=== PATIENT | female | born 1985 | race Asian ===

== ENCOUNTER 2017-04-23 10:50 | Inpatient (IN) | payer OTHER ==
[2017-04-23 11:50] VITALS: BMI 41.3
[2017-04-23 12:06] LABS: BASOPHIL 0.2 % (0-2.0); EOSINOPHIL 0.3 % (0-4.5); MCH 30.6 pg (25.7-33.7); MCHC 34.6 g/dl (32.0-36.0); MEAN CELL VOLUME 88.5 fl (80-96); MEAN PLT VOLUME 9.7 fl (7.5-11.1); NEUTROPHILS 84.1 % (42.8-82.8); PLATELET COUNT 231 K/MM3 (134-434); RDW 14.3 % (11.6-15.6); WHITE BLOOD COUNT 8.7 K/mm3 (4.0-10.0)
[2017-04-23 12:19] LABS: INR 0.96 (0.82-1.09); PROTHROMBIN TIME (PATIENT) 10.6 SEC (9.98-11.88)
[2017-04-23 12:21] LABS: ACTIVATED PTT 28.7 SECONDS (26.9-34.4)
[2017-04-23 12:42] LABS: ALBUMIN 2.7 g/dl (3.4-5.0); ANION GAP 10 (8-16); BILIRUBIN,TOTAL 0.4 mg/dL (0.2-1.0); CO2 23 mmol/L (21-32); CREATININE 0.4 mg/dL (0.55-1.02); GLUCOSE,RANDOM 129 mg/dL (74-106); SGOT/AST 27 U/L (15-37); SGPT/ALT 24 U/L (12-78); TOT PROT 6.7 g/dl (6.4-8.2)
[2017-04-23 12:43] LABS: ALK PHOS 113 U/L (45-117)
[2017-04-23 14:31] LABS: URINE APPEARANCE CLEAR; URINE BILIRUBIN NEGATIVE (NEGATIVE); URINE BLOOD 1+ (NEGATIVE); URINE COLOR LTYELLOW; URINE GLUCOSE (UA) NEGATIVE (NEGATIVE); URINE KETONE NEGATIVE (NEGATIVE); URINE LEUK ESTERASE 3+ (NEGATIVE); URINE NITRITE NEGATIVE (NEGATIVE); URINE PROTEIN 1+ (NEGATIVE); URINE UROBILINOGEN NEGATIVE E.U./dl (0.2-1.0)
[2017-04-23 14:36] LABS: URINE RBC 5 /hpf (0-3); URINE WBC 7 /hpf (3-5)
[2017-04-23] MEDS ORDERED: CITRIC ACID/SODIUM CITRATE 30 ML UNIT-DOSE CUP PO ONE (15:30)
[2017-04-23] MEDS ORDERED: ELECTROLYTE-148 SOLN 500 ML IV ONE ×2 (15:30→16:30)
[2017-04-23 19:32] LABS: URIC ACID 3.1 mg/dL (2.6-7.2)
--- NOTE | 2017-04-23 19:53 | HP ---
Past Medical History - Admission Chief Complaint: Absent movement History of Present Illness: 32 yo @ 39 weeks gestation, sent from diagnostic center to L&D with a diagnosis of Demise. Patient states that she has not felt movement since yesterday. She's a gestational Diabetic. She had one prior . History Source: Patient Limitations to Obtaining History: No Limitations - Past Medical History ...: 3 ...Para: 1 ...Term: 1 ...: 0 ...Spon : 1 ...Induced : 0 ...Multiple Gestation: 0 ...LMP: 07/22/16 ... Weeks Gestation by Dates: 39.2 ...EDC by Dates: 04/28/17 ...EDC by Sono: 04/27/17 - Past Surgical History Past Surgical History: Yes: Hx Myomectomy: No Hx Transabdominal Cerclage: No - Smoking History Smoking history: Never smoked Have you smoked in the past 12 months: No Aproximately how many cigarettes per day: 0 - Alcohol/Substance Use Hx Alcohol Use: No History of Substance Use: reports: None - Social History Usual Living Arrangement: Yes: With Spouse History of Recent Travel: No Home Medications - Allergies Allergies/Adverse Reactions: Allergies Allergy/AdvReac Type Severity Reaction Status Date / Time No Known Allergies Allergy Verified 03/30/17 14:11 - Home Medications Home Medications: Ambulatory Orders Glyburide-Metformin 2.5-500 mg 2.5 mg PO DAILY 03/22/17 Family Disease History - Family Disease History Family History: Unremarkable Review of Systems - Review of Systems Constitutional: reports: No Symptoms Eyes: reports: No Symptoms HENT: reports: No Symptoms Neck: reports: No Symptoms Cardiovascular: reports: No Symptoms Respiratory: reports: No Symptoms Gastrointestinal: reports: No Symptoms Genitourinary: reports: No Symptoms Breasts: reports: No Symptoms Reported Musculoskeletal: reports: No Symptoms Integumentary: reports: No Symptoms Neurological: reports: No Symptoms Endocrine: reports: No Symptoms Hematology/Lymphatic: reports: No Symptoms Psychiatric: reports: No Symptoms Pain Intensity: 0 Physical Exam - Maternity Vital Signs: Vital Signs Temperature 98.0 F 04/23/17 18:00 Pulse Rate 106 H 04/23/17 18:00 Respiratory Rate 20 04/23/17 18:00 Blood Pressure 146/80 06/26/17 18:00 O2 Sat by Pulse Oximetry (%) Constitutional: Yes: Well Nourished Eyes: Yes: Conjunctiva Clear HENT: Yes: Atraumatic Neck: Yes: Supple, Trachea Midline Cardiovascular: Yes: Regular Rate and Rhythm - Abdominal Exam/OB Number of Fetuses: Single Presentation: Vertex - Vaginal Exam/OB Vaginal Bleediing: No - Physical Exam ...Motor Strength: WNL Psychiatric: Yes: Alert, Oriented - Labs Lab Results: CBC, BMP 04/23/17 11:45 04/23/17 11:45 Problem List - Problems (1) demise > 22 weeks, delivered, current hospitalization Code(s): O36.4XX0 - MATERNAL CARE FOR INTRAUTERINE , NOT APPLICABLE OR UNSP (2) Previous section Code(s): Z98.891 - HISTORY OF UTERINE SCAR FROM PREVIOUS SURGERY Assessment/Plan IUP @ 39 weeks Gestational Diabetes Previous Demise Pre op for repeat
[2017-04-23] MEDS ORDERED: ONDANSETRON 4 MG/2 ML VIAL IVPB PRN (22:12)
[2017-04-23] MEDS ORDERED: METHYLERGONOVINE MALEATE 0.2 MG/1 ML AMP IM PRN (22:15)
[2017-04-23] MEDS ORDERED: oxyCODONE HCL 5 MG TABLET PO PRN (22:15)
--- NOTE | 2017-04-23 22:15 | OP ---
Operative Note - Note: Operative Date: 04/23/17 Pre-Operative Diagnosis: Previous / Demise Operation: Repeat Low Transverse Findings: Baby girl with no heart rate, no tone, no breathing, no movement. Post-Operative Diagnosis: Same as Pre-op Surgeon: Miya Roberto Automotive Parts Clerk: Garth Waddell Anesthesia: Spinal Specimens Removed: Placenta Estimated Blood Loss (mls): 300
[2017-04-24] MEDS: diphenhydrAMINE HCL 25 MG CAPSULE (FP) PO PRN ×2 (01:58→09:25)
[2017-04-24] MEDS: OXYTOCIN 20 UNITS in 0.9% NS 1,000 ML IV SCH ×2 (05:21→13:08)
[2017-04-24 08:24] LABS: BASOPHIL 0.2 % (0-2.0); EOSINOPHIL 0.1 % (0-4.5); MCH 30.4 pg (25.7-33.7); MCHC 34.3 g/dl (32.0-36.0); MEAN CELL VOLUME 88.7 fl (80-96); MEAN PLT VOLUME 9.7 fl (7.5-11.1); NEUTROPHILS 86.6 % (42.8-82.8); PLATELET COUNT 192 K/MM3 (134-434); RDW 14.6 % (11.6-15.6); WHITE BLOOD COUNT 9.2 K/mm3 (4.0-10.0)
[2017-04-24] MEDS: glyBURIDE 1.25 MG TABLET PO SCH ×2 (09:25→16:29)
--- NOTE | 2017-04-24 09:59 | PN ---
Post Progress Note - Subjective Subjective: 32 yo status post delivery of a stillborn at 39 weeks gestation by , seen and evaluated. She's doing well. She was offered Pastoral care but refused. Post Day: 1 Type of Delivery: Repeat C/S Vital Signs: Vital Signs Temperature 99.5 F 04/24/17 09:50 Pulse Rate 90 04/24/17 09:50 Respiratory Rate 18 04/24/17 09:50 Blood Pressure 132/76 04/24/17 09:50 O2 Sat by Pulse Oximetry (%) 99 04/23/17 23:30 Breast Exam: Yes: Soft Uterus: Yes: Fundus Firm Incision: Yes: Dressing dry and intact Abdomen/GI: Yes: Abdomen soft Lochia: Yes: Rubra Lochia, amount: Small Extremities: Yes: Calves non-tender Perineum: Yes: Intact Activity: Other (She's lying) - Labs Labs: CBC WBC 9.2 K/mm3 (4.0-10.0) 04/24/17 07:00 RBC 3.51 M/mm3 (3.60-5.2) L 04/24/17 07:00 Hgb 10.7 GM/dL (10.7-15.3) D 04/24/17 07:00 Hct 31.2 % (32.4-45.2) L D 04/24/17 07:00 MCV 88.7 fl (80-96) 04/24/17 07:00 MCHC 34.3 g/dl (32.0-36.0) 04/24/17 07:00 RDW 14.6 % (11.6-15.6) 04/24/17 07:00 Plt Count 192 K/MM3 (134-434) 04/24/17 07:00 MPV 9.7 fl (7.5-11.1) 04/24/17 07:00 Neutrophils % 86.6 % (42.8-82.8) H 04/24/17 07:00 Lymphocytes % 8.8 % (8-40) D 04/24/17 07:00 Monocytes % 4.3 % (3.8-10.2) 04/24/17 07:00 Eosinophils % 0.1 % (0-4.5) 04/24/17 07:00 Basophils % 0.2 % (0-2.0) 04/24/17 07:00 Problem List - Problems (1) demise > 22 weeks, delivered, current hospitalization Code(s): O36.4XX0 - MATERNAL CARE FOR INTRAUTERINE , NOT APPLICABLE OR UNSP (2) Previous section Code(s): Z98.891 - HISTORY OF UTERINE SCAR FROM PREVIOUS SURGERY
--- NOTE | 2017-04-24 15:27 | PN ---
Progress Note (short form) - Note Progress Note: POD #1 - s/p repeat for demise under spinal with duramorph. Pt. doing well, sitting up comfortably in chair. No complaints. Good pain control. No apparent anesthetic complications noted. Continue current care.
[2017-04-24] MEDS: IBUPROFEN 600 MG TABLET (FP) PO PRN ×2 (16:05→21:29)
[2017-04-24] MEDS: SIMETHICONE 80 MG TAB.CHEW (FP) PO PRN ×2 (16:05→21:29)
[2017-04-24] MEDS ORDERED: BISACODYL 10 MG SUPP.RECT RC PRN (22:15)
--- NOTE | 2017-04-25 08:03 | PN ---
Post Progress Note - Subjective Subjective: pt upset & crying no c/o pain Post Day: 2 Type of Delivery: Repeat C/S Vital Signs: Vital Signs Temperature 97.7 F 04/24/17 22:00 Pulse Rate 89 04/24/17 22:00 Respiratory Rate 18 04/24/17 22:00 Blood Pressure 139/89 04/24/17 22:00 O2 Sat by Pulse Oximetry (%) 99 04/23/17 23:30 Breast Exam: Yes: Soft, Other. No: Engorged Uterus: Yes: Fundus Firm, Fundus below umbilicus, Non-tender Incision: Yes: Sutures intact (steri strips ). No: Oozing Abdomen/GI: Yes: Abdomen soft, Passing flatus (bm took ), Tolerating PO (diet ) . No: Abdominal Distention, Tender Lochia: Yes: Rubra Lochia, amount: Moderate Extremities: Yes: Calves non-tender Perineum: Yes: Intact Activity: Ambulating - Labs Labs: CBC WBC 9.2 K/mm3 (4.0-10.0) 04/24/17 07:00 RBC 3.51 M/mm3 (3.60-5.2) L 04/24/17 07:00 Hgb 10.7 GM/dL (10.7-15.3) D 04/24/17 07:00 Hct 31.2 % (32.4-45.2) L D 04/24/17 07:00 MCV 88.7 fl (80-96) 04/24/17 07:00 MCHC 34.3 g/dl (32.0-36.0) 04/24/17 07:00 RDW 14.6 % (11.6-15.6) 04/24/17 07:00 Plt Count 192 K/MM3 (134-434) 04/24/17 07:00 MPV 9.7 fl (7.5-11.1) 04/24/17 07:00 Neutrophils % 86.6 % (42.8-82.8) H 04/24/17 07:00 Lymphocytes % 8.8 % (8-40) D 04/24/17 07:00 Monocytes % 4.3 % (3.8-10.2) 04/24/17 07:00 Eosinophils % 0.1 % (0-4.5) 04/24/17 07:00 Basophils % 0.2 % (0-2.0) 04/24/17 07:00 Assessment/Plan stable pt is trying to cope with demise . she is verbalizing now , i tod her it is ok to cry ct pp care
[2017-04-25] MEDS: glyBURIDE 1.25 MG TABLET PO SCH ×2 (08:08→17:30)
[2017-04-25] MEDS: SIMETHICONE 80 MG TAB.CHEW (FP) PO PRN ×2 (11:27→18:49)
[2017-04-25] MEDS: IBUPROFEN 600 MG TABLET (FP) PO PRN ×2 (11:28→18:50)
[2017-04-25] MEDS: ACETAMINOPHEN 325 MG TABLET (FP) PO PRN ×2 (11:28→18:49)
[2017-04-25] MEDS: OXYTOCIN 20 UNITS in 0.9% NS 1,000 ML IV SCH ×2 (19:11→19:12)
--- NOTE | 2017-04-25 21:19 | PN ---
Mental Health Exam - Mental Status Exam Alert and Oriented to: Time, Place, Person Cognitive Function: Grossly Intact Patient Appearance: Disheveled Mood: Sad, Hopeful Affect: Appropriate, Labile Patient Behavior: Crying, Talkative, Appropriate, Cooperative Speech Pattern: Clear (heavily Elan accent.) Voice Loudness: Normal Thought Process: Intact, Goal Oriented Thought Disorder: Not Present Hallucinations: None Suicidal Ideation: None Homicidal Ideation: None Insight/Judgement: Fair ("i dont like seeing doctors any more") Sleep: Fair Appetite: Fair Muscle strength/Tone: Normal Gait/Station: Deferred
--- NOTE | 2017-04-25 21:25 | PN ---
Progress Note (short form) - Note Progress Note: called to see 32 yo female, surrounded by 4 yo son on bed with her family friend and her sister. Client has a stiil by transvere c section after a very difficult 9 month where she was treated for hypertension, diabetes. Client is alert orientated by 4, talkative currently. No depression, psychosis or Anisa. May have mild adjustment disorder related to general medical condition. Recommend family and community support over next few weeks. Recommend therapist in the community, she nodded. Declined SSRI, first line for mild anxiety, stated she is totally anti drug after her loss. Problem List - Problems (1) Adjustment disorder with anxiety Code(s): F43.22 - ADJUSTMENT DISORDER WITH ANXIETY
[2017-04-26] MEDS: SIMETHICONE 80 MG TAB.CHEW (FP) PO PRN (05:24)
[2017-04-26] MEDS: IBUPROFEN 600 MG TABLET (FP) PO PRN (05:24)
[2017-04-26] MEDS: glyBURIDE 1.25 MG TABLET PO SCH (08:09)
[2017-04-26 08:15] LABS: BASOPHIL 0.3 % (0-2.0); EOSINOPHIL 0.3 % (0-4.5); MCH 30.8 pg (25.7-33.7); MCHC 34.6 g/dl (32.0-36.0); MEAN PLT VOLUME 9.3 fl (7.5-11.1); NEUTROPHILS 82.9 % (42.8-82.8); PLATELET COUNT 212 K/MM3 (134-434); RDW 14.5 % (11.6-15.6); WHITE BLOOD COUNT 8.6 K/mm3 (4.0-10.0)
[2017-04-26 11:23] VITALS: BP 126/84; PULSE 72; TEMP 98.4
--- NOTE | 2017-04-27 13:35 | PATH ---
Surgical Pathology Report Patient Name: WALTER AGUAYO Med. Rec. 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 Specimen(s) Received PLACENTA Clinical History , gestational diabetic on glyburide, history of asthma, PIH Repeat c/section Final Diagnosis PLACENTA, DELIVERY: FOCALLY DISRUPTED, SMALL (<400 GM), THIRD TRIMESTER PLACENTA WITH MODERATE PREVILLOUS, PERIVILLOUS, AND PRECHORIONIC FIBRIN DEPOSITION, THREE VESSEL UMBILICAL CORD, AND PLACENTAL MEMBRANES WITH FOCAL LAMELLAR NECROSIS AND FOCAL EARLY ACUTE CHORIOAMNIONITIS. Electronically Signed Edson Gee M.D. Gross Description The specimen is received fresh, labeled "placenta" and is a 363 gram, 16.5 x 16.0 x 2.7 cm placenta with minimal attached membranes and an attached umbilical cord. The attached membranes are huynh, thickened, cloudy and insert marginally. The umbilical cord has a dusky red-brown appearance. The umbilical cord measures 21 cm. in length and averages 1.5 cm in diameter. The cord inserts eccentrically, 4 cm to the nearest margin. No true knots or strictures are identified. Cut surface of the umbilical cord reveals 3 vessels. The surface is fang-blue with fibrin deposition and appropriate caliber vessels. The maternal surface is red-brown with focal defects. Sectioning reveals red-brown, spongy parenchyma. No focal lesions are identified. G[employer]med Tape Press Operator sections are submitted in three cassettes as follows: 1- membrane rolls and umbilical cord; 2-3- full thickness sections of placenta. /04/26/2017 saudi04/26/2017
--- NOTE | 2017-05-07 15:40 | PATH ---
Surgical Pathology Report Patient Name: WALTER AGUAYO Med. Rec. 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 Specimen(s) Received TISSUE OF FOR GENETIC ANALYSIS Clinical History Chromosomal analysis, chromosomal micro-array of tissue, demise Final Diagnosis SNP microarray analysis performed and interpreted at [place] (specimen # [id number]) shows the following: Result: Normal Female arr [hg19](1-22,X)x2 The whole genome chromosome SNP microarray (reveal) analysis was normal. No significant changes in the 2.695 million region specific SNP and structural targets were detected within the thresholds. No admixture of and maternal DNA was noted. Electronically Signed Edson Gee M.D. Addendum Reported: 05/08/2017 Addendum Diagnosis CHROMOSOME ANALYSIS PERFORMED AND [facility]PRETED AT [facility] [place] (SPECIMEN #[id number]) SHOWED THE FOLLOWING: RESULTS: No analysis possible INTERPRETATION: No cell growth occurred in tissue culture, and chromosome analysis was not possible. Comment: Refer to the results of the microarray analysis reported in the previous addendum. Edson Gee M.D. Gross Description Received in saline, labeled with the patient's name and indicated on the requisition to be tissue from the inner right thigh, is a 2.3 x 0.7 x 0.5 cm huynh, irregular portion of soft tissue. The specimen is placed in RPMI solution and sent for chromosomal analysis. /04/24/201704/24/2017
== END 2017-04-26 11:53 | disposition home or self-care (01) | DRG 540 ==
LOC: JLDR 10:50 → J3W 04-24 00:15
PROVIDERS: ADMIT Obstetrics & Gynecology; ATTEND Obstetrics & Gynecology
PROC: 10D00Z1 Extraction of Products of Conception, Low, Open Approach (ICD-10-PCS; principal; 2017-04-23)
DX: O36.4XX0 Maternal care for intrauterine death, not applicable or unspecified (principal); O34.211 Maternal care for low transverse scar from previous cesarean delivery; O24.429 Gestational diabetes mellitus in childbirth, unspecified control; O16.4 Unspecified maternal hypertension, complicating childbirth; O75.89 Other specified complications of labor and delivery; F43.22 Adjustment disorder with anxiety; Z3A.39 39 weeks gestation of pregnancy; Z37.1 Single stillbirth
CPT/HCPCS: 36415; 80053; 81003; 81015; 84550; 85025; 85610; 85730; 86593; 86850; 86900; 86901; 88304-TC; 88307-TC